=== PATIENT | male | born 1945 | race Caucasian/White ===

== ENCOUNTER → 2016-07-06 | Outpatient (CLI) | payer MEDICARE, OTHER | END | disposition home or self-care (01) | LOC: GMAL 10:46 | PROVIDERS: ATTEND Family Medicine | DX: D51.3 Other dietary vitamin B12 deficiency anemia (principal); E55.9 Vitamin D deficiency, unspecified ==

== ENCOUNTER → 2017-01-11 | Outpatient (CLI) | payer MEDICARE, OTHER | END | disposition home or self-care (01) | LOC: GMAL 10:40 | PROVIDERS: ATTEND Family Medicine | DX: Z12.5 Encounter for screening for malignant neoplasm of prostate (principal); E55.9 Vitamin D deficiency, unspecified | CPT/HCPCS: 82306; G0103 ==

== ENCOUNTER → 2017-05-10 | Outpatient (CLI) | payer MEDICARE, OTHER | END | disposition home or self-care (01) | LOC: LAB.O 17:01 | PROVIDERS: ATTEND Family Medicine | DX: M25.562 Pain in left knee (principal) ==

== ENCOUNTER → 2017-06-05 | Outpatient (CLI) | payer MEDICARE, OTHER | LOC: GMAL 10:36 | PROVIDERS: ATTEND Family Medicine | DX: R97.20 Elevated prostate specific antigen [PSA] (principal) ==

== ENCOUNTER → 2017-08-03 | Outpatient (CLI) | payer MEDICARE, OTHER ==
--- NOTE | 2017-08-04 09:32 | RAD ---
EXAM DESCRIPTION: Pelvis CLINICAL HISTORY: 72 years Male, PAIN IN LEFT HIP COMPARISON: None. TECHNIQUE: Frontal x-ray view of hips and pelvis FINDINGS: Advanced degenerative arthrosis of the hips is seen bilaterally with bilateral hip joint space narrowing especially medially. No fracture of the proximal femurs. No hip dislocation. Degenerative changes are seen at the SI joints and lower L-spine. IMPRESSION: Degenerative osteoarthrosis of the bilateral hips. Electronically signed by: Irvin Guillory MD 08/04/2017 9:30 AM CDT
--- NOTE | 2017-08-04 09:35 | RAD ---
EXAM DESCRIPTION: Knee,Left Complete CLINICAL HISTORY: 72 years, Male, KNEE PAIN COMPARISON: None TECHNIQUE: 4 views of the left knee FINDINGS: No fracture or dislocation. Bones appear mildly osteopenic. Markedly narrowed medial compartment on frontal view with sclerosis and eburnation. Prominent medial and lateral joint line spurring is noted. There is meniscal calcification of the lateral compartment. Lateral view shows normal position of the patella. Posterior patellar spurring is seen with very prominent anterior patellar enthesopathy inferiorly. Prominent enthesopathic changes at the anterior tibial eminence. Spurring is prominent in the posterior femoral condylar regions and along the posterior margin of the tibia. There may be a small suprapatellar knee joint effusion. Normal contour of quadriceps and patellar tendons. No abnormal patellar tilt or subluxation on patellar sunrise view. Degenerative spurring of the anterior femoral trochlea and lateral patella is seen. Patellar enthesopathy is noted. IMPRESSION: Advanced degenerative osteoarthrosis of the left knee. Electronically signed by: Irvin Guillory MD 08/04/2017 9:34 AM CDT
== END ==
LOC: RAD 09:31
PROVIDERS: ATTEND Orthopaedic Surgery
DX: M25.562 Pain in left knee (principal); M25.552 Pain in left hip

== ENCOUNTER → 2017-08-14 | Outpatient (CLI) | payer MEDICARE, OTHER | END | disposition home or self-care (01) | LOC: GMAL 11:51 | PROVIDERS: ATTEND Family Medicine | DX: R30.0 Dysuria (principal) ==

== ENCOUNTER → 2017-08-17 | Outpatient (CLI) | payer MEDICARE, OTHER | LOC: LAB.O 08:18 | PROVIDERS: ATTEND Orthopaedic Surgery | DX: Z01.818 Encounter for other preprocedural examination (principal) ==

== ENCOUNTER 2017-08-28 07:00 | Inpatient (IN) | payer MEDICARE, OTHER ==
--- NOTE | 2017-08-27 11:57 | HP ---
CHIEF COMPLAINT: Left knee pain. HISTORY OF PRESENT ILLNESS: Mr. Diaz is a 72-year-old male with a history of severe bilateral knee pain. Mr. Diaz has undergone right total knee replacement. He did well from that and has been having left knee pain for years. It has gotten progressively worse and at this point, he has failed conservative measures. Because of failure of conservative measures and ongoing knee pain, he has requested operative intervention. After discussing the risks , benefits and alternatives to that, the patient has given informed consent. PAST SURGICAL HISTORY: 1. Total knee arthroplasty. MEDICATIONS: 1. Valsartan. 2. Hydrochlorothiazide. 3. Terazosin. 4. Loratadine. 5. Omeprazole. 6. Multiple vitamins. ALLERGIES: MORPHINE. CODE STATUS: DNR. IMMUNIZATIONS: Up to date. SOCIAL HISTORY: The patient does not drink, smoke or use any illicit drugs. FAMILY HISTORY: None pertinent to today's complaint. REVIEW OF SYSTEMS: Negative except as indicated in the History of Present Illness. PHYSICAL EXAMINATION: VITAL SIGNS: Blood pressure 134/75. Pulse 62. Height 6'2". Weight 257 pounds. MENTAL STATUS: The patient is awake, alert, and is able to give a good history and participate in the physical. The patient is oriented to person, place and time. SKIN: Normal tone and turgor. HEENT: Normocephalic, atraumatic. Pupils equal, round and reactive. Mucosal membranes are moist. NECK: Normal range of motion. No thyromegaly, no lymphadenopathy. CHEST: Normal respiratory excursion. CARDIAC: Regular rate and rhythm. No murmurs, rubs or gallops. MUSCULOSKELETAL: The bilateral upper extremities show full active range of motion without significant pain. Sensation is intact in the upper extremities and they are warm and well perfused. He has no crepitus and no deformity. The right lower extremity shows full range of motion of the hip. He has good range of motion in the knee with well-healed wound anteriorly. Sensation is intact. He has no instability. The left lower extremity shows full range of motion of the hip. Sensation is intact. It is warm and well perfused. He has no varus/valgus or anterior/ posterior laxity. He does have crepitus. He does have a moderate effusion. IMAGING: X-rays show advanced arthritis. ASSESSMENT: 1. Osteoarthritis. PLAN: The plan at this point is total knee arthroplasty. He has failed conservative measures. We have discussed the risks, benefits, and alternatives to that and the patient has given informed consent. #[id number] [facility]
[~2017-08-28 07:00] MED LIST: BUPIVACAINE 0.25% W/EPI 50 ML VIAL INJ ONE; DEXAMETHASONE INJ 10 MG/ML VIAL ONE; LACTATED RINGERS 1,000 ML ONE; LIDOCAINE 2 % GEL 5 ML TUBE TOP ONE; METOCLOPRAMIDE HCL INJ 10 MG/2 ML VIAL ONE; MIDAZOLAM INJ 2 MG/2 ML VIAL ONE; MORPHINE SULFATE *EPIDURAL* 0.5 MG/ML VIAL ONE; ONDANSETRON INJ 4 MG/2 ML VIAL ONE; PROPOFOL 200 MG/20 ML VIAL IV ONE; SODIUM CHL 0.9% 100ML MINI-BAG 100 ML IVPB ONE; SODIUM CHLORIDE 0.9% 100ML 100 ML IVPB ONE; SODIUM CHLORIDE 0.9% 250ML 250 ML ONE; TRANEXAMIC ACID 1,000 MG/10 ML VIAL ONE; VANCOMYCIN HCL INJ 1,000 MG VIAL IVPB ONE; ceFAZolin SODIUM 1 GM VIAL ONE; fentaNYL CITRATE INJ 50 MCG/ML AMP ONE
[2017-08-28] MEDS ORDERED: ONDANSETRON INJ 4 MG/2 ML VIAL IV PRN (07:12)
[2017-08-28] MEDS ORDERED: TEMAZEPAM 15 MG CAP PO PRN (07:12)
[2017-08-28] MEDS ORDERED: ALUMINUM & MAGNESIUM HYDROXIDE 30 ML UD PO PRN (07:12)
[2017-08-28] MEDS ORDERED: BISACODYL SUPPOSITORY 10 MG PR PRN (07:12)
[2017-08-28] MEDS ORDERED: PROMETHAZINE HCL INJ 25 MG in SODIUM CHLORIDE 0.9% 50ML 50 ML IVPB PRN (07:12)
[2017-08-28] MEDS ORDERED: CYCLOBENZAPRINE HCL 10 MG TAB PO PRN (07:12)
[2017-08-28] MEDS ORDERED: ZOLPIDEM TARTRATE 5 MG TAB PO PRN (07:12)
[2017-08-28] MEDS ORDERED: HYDROcodone 5MG/APAP 325MG 1 EA TAB PO PRN (07:12)
[2017-08-28] MEDS ORDERED: NALOXONE HCL INJ 0.4 MG/ML VIAL IV PRN (07:12)
[2017-08-28] MEDS ORDERED: PROMETHAZINE HCL INJ 12.5 MG in SODIUM CHLORIDE 0.9% 50ML 50 ML IVPB PRN (07:12)
[2017-08-28] MEDS ORDERED: BENZOCAINE-MENTH LOZ (CEPACOL) 1 EA LOZ MT PRN (07:12)
[2017-08-28] MEDS ORDERED: MAGNESIUM HYDROXIDE 30 ML UD PO PRN (07:12)
[2017-08-28] MEDS ORDERED: TRANEXAMIC ACID INJ 1,000 MG in SODIUM CHLORIDE 0.9% 100ML 100 ML IVPB ONE (07:12)
[2017-08-28] MEDS ORDERED: HYDROmorphone PCA 0.2 MG/ML 1 BAG BAG IVPB SCH (07:30)
[2017-08-28] MEDS: VANCOMYCIN HCL INJ 1,000 MG VIAL IVPB ONE ×2 (07:45→09:03)
[2017-08-28] MEDS: ceFAZolin SODIUM 1 GM VIAL ONE ×2 (07:45→09:03)
[2017-08-28] MEDS: DEX 5% W/NACL 0.45% 1000ML 1,000 ML IVS PRN (12:53)
--- NOTE | 2017-08-28 15:24 | CONS ---
SUPERVISING PHYSICIAN: Chris De La Cruz MD HISTORY OF PRESENT ILLNESS: This is a 72-year-old male patient with a history of severe bilateral knee pain for which the first surgery he underwent was a right total knee arthroplasty. Due to failure of conservative measures, he did have left total knee arthroplasty today. There were no intraoperative complications. He came to the Medical/Surgical Floor postoperatively awake and alert. He states the pain is there and he knows it is there, but it is currently controlled with the [employer] pump. PAST MEDICAL HISTORY: 1. Hypertension. 2. Chronic dyspepsia. 3. Bilateral knee osteoarthritis. 4. Hemorrhoids. 5. Diastolic dysfunction, ejection fraction 60%. PAST SURGICAL HISTORY: 1. Appendectomy. 2. Cholecystectomy. 3. Exploratory laparotomy for small bowel obstruction several years ago. 4. Right total knee arthroplasty from which he apparently had a postoperative ileus after that. CURRENT MEDICATIONS: 1. Diovan 150/12.5 1 tab p.o. b.i.d. 2. Terazosin 2 mg 1 tab p.o. at bedtime. 3. Hydrochlorothiazide 12.5 mg p.o. q.a.m. 4. Saw Corbin 450 mg 2 tabs daily. 5. Tumeric 2 tabs p.o. daily. 6. Omeprazole 20 mg p.o. daily. 7. Claritin 10 mg p.o. daily. ALLERGIES: ACETAMINOPHEN, CODEINE, MORPHINE. FAMILY HISTORY: His father at 76 of a brain aneurysm. His mother has coronary artery disease, hypertension and lung cancer and lives in a jail. SOCIAL HISTORY: The patient quit smoking back in the 1970s. No current alcohol abuse. No illicit drugs. REVIEW OF SYSTEMS: Other than his knee pain, 12 system review is negative. PHYSICAL EXAMINATION: VITAL SIGNS: Blood pressure 114/58. Heart rate 62. Respiratory rate 16. Temperature 98.0. Oxygen saturation 99%. GENERAL: Mr. Diaz is a 72-year-old male patient in no active distress currently. HEENT: Normocephalic, atraumatic. Pupils are equal and reactive. No nasal drainage. Throat with moist mucosa. NECK: Supple. Midline trachea. No jugular venous distention. CHEST: Symmetrical with equal rise and fall of the chest with inspiration and expiration. Lung sounds are clear to auscultation bilaterally. CARDIOVASCULAR: Regular rate and rhythm. Normal S1, S2. ABDOMEN: Soft. Positive bowel sounds. EXTREMITIES: Lower extremities with no edema, but he does have Anthony bandage in place around the left knee with splinting in place. Peripheral pulses are adequate. NEUROLOGIC: The patient is alert, a little bit drowsy from anesthesia, but able to answer questions appropriately. ASSESSMENT: 1. Left knee osteoarthritis status post left total knee arthroplasty. 2. History of hypertension which is currently controlled. 3. History of postoperative ileus in the past from his previous right total knee arthroplasty. PLAN: At this point, we will utilize postoperative orders by Dr. Barrientos. This will include physical therapy and pain control. We will advance diet as tolerated. We will resume his home medications as well. Postoperative labs are ordered for tomorrow to include followup hemoglobin and hematocrit. He has currently got DVT prophylaxis ordered with 30 mg of Lovenox twice daily. We will resume his home medications at this point. #[id number] [facility]
[2017-08-28] MEDS ORDERED: SODIUM CHLORIDE 0.9% 250ML 250 ML ONE ×2 (15:46→19:48)
[2017-08-28] MEDS ORDERED: ceFAZolin SODIUM 2 GRAMS PREMI 50 ML IVPB ONE ×2 (15:47→19:45)
[2017-08-28] MEDS ORDERED: VANCOMYCIN HCL INJ 1,000 MG VIAL IVPB ONE ×2 (15:47→19:48)
[2017-08-28] MEDS: ceFAZolin SODIUM 2 GRAMS PREMI 2 GM in PREMIX BAG 1 BAG IVPB SCH (16:10)
[2017-08-28] MEDS: VANCOMYCIN HCL INJ 1,000 MG in SODIUM CHLORIDE 0.9% 250ML 250 ML IVPB SCH (18:40)
[2017-08-28] MEDS ORDERED: ENOXAPARIN SODIUM 30 MG/0.3 ML SYG SUBCU ONE (19:46)
[2017-08-28] MEDS ORDERED: OMEPRAZOLE CAP 20 MG CAP ONE (19:48)
[2017-08-28] MEDS: IV SET AND CAP CHANGE INJ INJ SCH (20:45)
[2017-08-28] MEDS: SODIUM CHLORIDE 0.9% (FLUSH) 10 ML SYG IV PRN (20:47)
[2017-08-28] MEDS: CHOLECALCIFEROL 2,000 IU TAB PO SCH (20:47)
[2017-08-28] MEDS: TERAZOSIN 1 MG CAP PO SCH (20:47)
[2017-08-28] MEDS: VALSARTAN 80 MG TAB PO SCH (20:47)
[2017-08-28] MEDS: DOCUSATE CALCIUM 240 MG CAP PO SCH (20:47)
[2017-08-28] MEDS ORDERED: hydroCHLOROthiazide 12.5 MG CAP PO SCH (21:00)
[2017-08-28] MEDS ORDERED: CHOLECALCIFEROL 25 MG PO SCH (21:00)
[2017-08-28] MEDS ORDERED: NON-FORMULARY MEDICATION 1 EA MIS (Valsartan-Hydrochlorothiazide [Valsartan/Hydrochlorothi PO SCH (21:00)
[2017-08-28] MEDS: ENOXAPARIN SODIUM 30 MG/0.3 ML SYG SUBCU SCH (21:57)
[2017-08-29] MEDS: ceFAZolin SODIUM 2 GRAMS PREMI 2 GM in PREMIX BAG 1 BAG IVPB SCH ×2 (00:07→08:04)
[2017-08-29] MEDS: traMADol HCL 50 MG TAB PO PRN (04:41)
[2017-08-29] MEDS: VANCOMYCIN HCL INJ 1,000 MG in SODIUM CHLORIDE 0.9% 250ML 250 ML IVPB SCH (06:05)
[2017-08-29] MEDS: OMEPRAZOLE CAP 20 MG CAP PO SCH (06:06)
[2017-08-29] MEDS ORDERED: ceFAZolin SODIUM 2 GRAMS PREMI 50 ML IVPB ONE (07:04)
[2017-08-29] MEDS: CELECOXIB 100 MG CAP PO SCH (07:34)
[2017-08-29] MEDS: VALSARTAN 80 MG TAB PO SCH ×2 (08:03→20:49)
[2017-08-29] MEDS: CHOLECALCIFEROL 2,000 IU TAB PO SCH ×2 (08:03→20:49)
[2017-08-29] MEDS: LORATADINE 10 MG TAB PO SCH (08:03)
[2017-08-29] MEDS: MAGNESIUM OXIDE 400 MG TAB PO SCH (08:03)
[2017-08-29] MEDS: hydroCHLOROthiazide 25 MG TAB PO SCH (08:03)
--- NOTE | 2017-08-29 08:22 | OP ---
DATE OF PROCEDURE: 08/28/17 PREOPERATIVE DIAGNOSIS: 1. Left knee osteoarthritis. POSTOPERATIVE DIAGNOSIS: 1. Left knee osteoarthritis. PROCEDURE: 1. Left total knee arthroplasty. SURGEON: Aamir Barrientos MD. SPECIALTY MOLDER: Rashard Dior CST, SA-C. ANESTHESIA: General. COMPLICATIONS: None. FINDINGS: Severe arthritis of the knee. INDICATION: Mr. Diaz has a long history of pain in the knee. The pain has been treated conservatively, however, he has failed to get relief. Because of the ongoing pain and failure of conservative measures, he has requested operative intervention. After discussing the risks, benefits and alternatives to that, the patient has given informed consent for total knee arthroplasty. PROCEDURE: The patient was brought to the Operating Room and placed in supine position. General anesthesia was induced and the patient's leg was sterilely prepped and draped. Following prepping and draping, the distal femur was exposed and using an intramedullary guide, the distal femoral cut was made. The appropriate sized cutting block was measured, pinned into place, and the anterior, posterior, and chamfer cuts were made. The ACL was transected and the tibia was subluxed. Both the medial and lateral menisci were removed. An intramedullary guide was used to make the proximal tibial cut. The appropriate sized base plate was placed and a trial polyethylene was placed. The trial femur was placed, the knee was reduced, and the knee was taken through a range of motion. The knee was stable in anterior, posterior, varus and valgus stress. The patella tracked anatomically without evidence of subluxation or dislocation. After trialing, the trial components were removed and the bony surfaces were thoroughly irrigated with saline. Following irrigation, the surfaces were dried and the final components were cemented into place. The excess cement was removed and the remaining cement was allowed to cure. The knee was again taken through a range of motion to confirm stability. The wound was then irrigated with saline and closure was performed using PDS to approximate the arthrotomy followed by closure of the subcutaneous tissues with a combination of running and interrupted Monocryl sutures. Sterile dressing was placed. The patient was awoken from anesthesia and taken to Recovery. POSTOPERATIVE INSTRUCTIONS: The patient will be weight-bearing as tolerated on postoperative day 1. COMPONENTS: [employer] Triathlon knee, size 8 femur, size 7 tibia, 9 mm insert. #[id number] [facility]
[2017-08-29] MEDS ORDERED: LORATADINE PO SCH (09:00)
[2017-08-29] MEDS ORDERED: hydroCHLOROthiazide 12.5 MG CAP PO SCH (09:00)
[2017-08-29] MEDS: HYDROcodone/IBUPROFEN 7.5/200 1 EA TAB PO PRN ×2 (09:22→20:50)
[2017-08-29] MEDS: ENOXAPARIN SODIUM 30 MG/0.3 ML SYG SUBCU SCH ×2 (09:32→21:49)
--- NOTE | 2017-08-29 10:39 | PN ---
DATE: 08/29/17 SUBJECTIVE: Mr. Diaz is doing well today. He is having mild pain right now. Other than that, he has no complaints. OBJECTIVE: Afebrile. Vital signs stable. Dressing is clean, dry and intact. ASSESSMENT: Status post total knee arthroplasty. PLAN: The plan at this point is for continued weight-bearing as tolerated. [facility][id number] [facility]
--- NOTE | 2017-08-29 10:40 | PN ---
DATE: 08/28/17 POSTOPERATIVE CHECK SUBJECTIVE: Mr. Diaz is not having any pain. The spinal appears to be working well. OBJECTIVE: Afebrile. Vital signs stable. Dressing is clean, dry and intact. ASSESSMENT: Status post total knee arthroplasty. PLAN: The plan at this point is to begin weight-bearing as tolerated and also CPM with progression as tolerated. #[id number] [facility]
[2017-08-29] MEDS: DEX 5% W/NACL 0.45% 1000ML 1,000 ML IVS PRN (15:07)
[2017-08-29] MEDS: DOCUSATE CALCIUM 240 MG CAP PO SCH (20:49)
[2017-08-29] MEDS: TERAZOSIN 1 MG CAP PO SCH (20:49)
[2017-08-29] MEDS: SODIUM CHLORIDE 0.9% (FLUSH) 10 ML SYG IV PRN (20:50)
--- NOTE | 2017-08-30 00:22 | PN ---
DATE: 08/29/17 SUPERVISING PHYSICIAN: Chris De La Cruz M.D. SUBJECTIVE: The patient is sitting up in his hospital bed. He has no complaints of nausea, vomiting, diarrhea, constipation, chest pain or shortness of breath. He had a little more difficulty today as yesterday postoperatively he did very well. He said the pain was a little more intense today but it is not anything he did not expect. The patient has not voided since the Stanley catheter was discontinued. He did say that he frequently has trouble with postoperative urinary retention and in the past he has had to be straight cathed several times until he was able to empty his bladder. OBJECTIVE: VITAL SIGNS: He is afebrile, heart rate 84, blood pressure 125/80, respiratory rate 18, O2 sat 96% on room air. RESPIRATORY: Essentially clear to auscultation bilaterally. CARDIAC: Regular rate and rhythm. EXTREMITIES: Bilateral pedal pulses are palpable at +2. Dressing to his left knee is dry and intact. There is minimal swelling to the left knee. NEUROLOGIC: He is awake, alert and oriented times three. LABORATORY: Hemoglobin 12.1, hematocrit 35.7. All other labs and films have been reviewed via the EMR. ASSESSMENT: 1. Osteoarthritis of the left knee status post left total knee arthroplasty performed by Dr. Aamir Barrientos, orthopedic surgeon, postoperative day #1. 2. History of postoperative urinary retention frequently requiring postoperative catheterization. 3. History of hypertension. 4. History of postoperative ileus in the past after his right total knee arthroplasty. PLAN: We will continue present supportive care. Orthopedic issues will be per Dr. Aamir Barrientos, orthopedic surgeon. Will continue with his physical therapy for strengthening and conditioning. Continue to encourage good pulmonary hygiene. The patient has not voided, so we will do a straight cath on him and if needed we can do bladder training this evening or in the morning. Will continue to watch that closely. If the patient has any abdominal pain, it may be beneficial to get an abdominal x-ray, but will encourage for him to continue to walk in the hallways as tolerated. Otherwise we will continue to follow the patient closely and follow as needed. Dr. De La Cruz is the collaborating physician available for consultation. #[id number] [facility]
[2017-08-30] MEDS: HYDROcodone/IBUPROFEN 7.5/200 1 EA TAB PO PRN ×4 (01:27→21:26)
[2017-08-30] MEDS: OMEPRAZOLE CAP 20 MG CAP PO SCH (06:29)
[2017-08-30] MEDS: CELECOXIB 100 MG CAP PO SCH (07:37)
[2017-08-30] MEDS: CHOLECALCIFEROL 2,000 IU TAB PO SCH ×2 (08:23→21:25)
[2017-08-30] MEDS: VALSARTAN 80 MG TAB PO SCH ×2 (08:23→21:25)
[2017-08-30] MEDS: hydroCHLOROthiazide 25 MG TAB PO SCH (08:23)
[2017-08-30] MEDS: MAGNESIUM OXIDE 400 MG TAB PO SCH (08:23)
[2017-08-30] MEDS: LORATADINE 10 MG TAB PO SCH (08:23)
[2017-08-30] MEDS: SODIUM CHLORIDE 0.9% (FLUSH) 10 ML SYG IV SCH ×2 (08:24→21:25)
[2017-08-30] MEDS: ENOXAPARIN SODIUM 30 MG/0.3 ML SYG SUBCU SCH ×2 (09:40→21:41)
--- NOTE | 2017-08-30 13:44 | PN ---
DATE: 08/30/17 SUBJECTIVE: Mr. Diaz seems to be doing well and he has been ambulating. OBJECTIVE: Afebrile. Vital signs stable. Wound is clean. There are no signs or symptoms of infection. ASSESSMENT: Status post total knee arthroplasty. PLAN: The plan at this point is for him to continue with weight-bearing as tolerated as well as increasing CPM and encouraging active range of motion. #[id number] [facility]
[2017-08-30] MEDS: traMADol HCL 50 MG TAB PO PRN (16:48)
--- NOTE | 2017-08-30 19:46 | PN ---
DATE: 08/30/17 SUPERVISING PHYSICIAN: Chris De La Cruz M.D. SUBJECTIVE: The patient is sitting up in his chair in his hospital room. His Iceman is in place on his left knee. He had more pain today than he has had in the previous couple of days, but it was not unexpected. Otherwise he has no complaints of chest pain, nausea, vomiting, diarrhea or constipation. OBJECTIVE: VITAL SIGNS: He is afebrile, heart rate 74, blood pressure 144/85, respiratory rate 18, O2 sat is 93% on room air. RESPIRATORY: Essentially clear to auscultation bilaterally. CARDIAC: Regular rate and rhythm. EXTREMITIES: His bilateral pedal pulses are strong at +2. The dressing to his left knee is dry and intact. NEUROLOGIC: He is awake, alert and oriented times three. There are no labs and films to report at this time. ASSESSMENT: 1. Osteoarthritis of the left knee status post left total knee arthroplasty performed by Dr. Aamir Barrientos, orthopedic surgeon, postoperative day #2. 2. History of postoperative urinary retention frequently requiring postoperative catheterization. 3. History of hypertension. 4. History of postoperative ileus in the past after his right total knee arthroplasty. PLAN: We will continue present supportive care. Orthopedic issues will be per Dr. Aamir Barrientos, orthopedic surgeon. Strengthening and conditioning will continue with Physical Therapy. Yesterday just prior to catheterization, the patient was able to void and has had no problems today. Due to his past history of ileus, will need to watch that closely. So far he has had no issues with bowel movements or abdominal pain. Continue to encourage good pulmonary hygiene. Will continue to monitor him closely and follow as needed. Dr. De La Cruz is the collaborating physician available for consultation. #[id number] [facility]
[2017-08-30] MEDS: TERAZOSIN 1 MG CAP PO SCH (21:25)
[2017-08-30] MEDS: DOCUSATE CALCIUM 240 MG CAP PO SCH (21:25)
[2017-08-31] MEDS: OMEPRAZOLE CAP 20 MG CAP PO SCH (06:19)
[2017-08-31 06:51] VITALS: O2SAT 95
[2017-08-31] MEDS: CELECOXIB 100 MG CAP PO SCH (07:48)
[2017-08-31] MEDS: IV SET AND CAP CHANGE INJ INJ SCH (07:49)
[2017-08-31] MEDS: VALSARTAN 80 MG TAB PO SCH (09:03)
[2017-08-31] MEDS: hydroCHLOROthiazide 25 MG TAB PO SCH (09:04)
[2017-08-31] MEDS: CHOLECALCIFEROL 2,000 IU TAB PO SCH (09:04)
[2017-08-31] MEDS: SODIUM CHLORIDE 0.9% (FLUSH) 10 ML SYG IV SCH (09:04)
[2017-08-31] MEDS: MAGNESIUM OXIDE 400 MG TAB PO SCH (09:04)
[2017-08-31] MEDS: LORATADINE 10 MG TAB PO SCH (09:04)
[2017-08-31] MEDS: ENOXAPARIN SODIUM 30 MG/0.3 ML SYG SUBCU SCH (10:03)
[2017-08-31 10:59] VITALS: TEMP 97.6
[2017-08-31 14:50] VITALS: BP 116/64
[2017-08-31] MEDS: HYDROcodone/IBUPROFEN 7.5/200 1 EA TAB PO PRN (15:32)
[2017-08-31] MEDS ORDERED: MAGNESIUM HYDROXIDE 30 ML UD PO ONE (21:00)
[2017-08-31] MEDS ORDERED: BISACODYL SUPPOSITORY 10 MG PR ONE (21:00)
--- NOTE | 2017-09-01 14:00 | DS ---
SUPERVISING PHYSICIAN: Chris De La Cruz M.D. DISCHARGE DIAGNOSIS: 1. Osteoarthritis of the left knee status post left total knee arthroplasty performed by Dr. Aamir Barrientos, orthopedic surgeon, postoperative day #3. 2. History of postoperative urinary retention frequently requiring postoperative catheterization. 3. History of hypertension. 4. History of postoperative ileus in the past after his right total knee arthroplasty. HISTORY OF PRESENT ILLNESS: This is a 72 year-old male patient who was admitted on 08/28/17 for a left TKA. He has a history of bilateral knee pain. He has previously had a right total knee arthroplasty and on date of admission he was admitted for his operative procedure on his left knee. He failed conservative measures as an outpatient and he elected to have his TKA per Dr. Aamir Barrientos, orthopedic surgeon. HOSPITAL COURSE: I saw him postoperatively. He advanced through his postoperative phase without any problems other than he had difficulty voiding once his catheter was discontinued. He did not require re-catheterization as he eventually voided without difficulty approximately 8 hours after discontinuance of the Stanley catheter. He had normal bowel movements and there were no issues with postoperative ileus. He continued his physical therapy for strengthening and conditioning. He has net his physical therapy goals and he will be discharged home today. DISCHARGE PLAN: The patient will be discharged home in stable condition. He is to continue his physical therapy at [facility]. He has a postoperative followup with Dr. Barrientos and he will need to make an appointment with Dr. Scruggs in the next several weeks. He was unable to get his Vicoprofen filled so I am sending him home on Tramadol overnight until Dr. Barrientos can fill his prescription for Vicoprofen as he is allergic to Acetaminophen. He is to return to the hospital or call Dr. Barrientos's office for any further problems or complications. DISCHARGE MEDICATIONS: 1. Terazosin. 2. Valsartan/Hydrochlorothiazide. 3. Omeprazole. 4. Tumeric. 5. Vitamin D. 6. Saw palmetto. 7. Claritin. 8. Celebrex. 9. Cyclobenzaprine. 10. Surfak. 11. Hydrocodone/Ibuprofen. 12. Xarelto for 9 additional days[address] 13[address] De La Cruz is the collaborating physician available for consultation. #[id number] [facility]
== END 2017-08-31 15:57 | disposition home or self-care (01) | DRG 470 ==
LOC: AMB 07:00 → MS 11:04
PROVIDERS: ADMIT Orthopaedic Surgery; ATTEND Nurse Practitioner Acute Care
PROC: 0SRD0J9 Replacement of Left Knee Joint with Synthetic Substitute, Cemented, Open Approach (ICD-10-PCS; principal; 2017-08-28 07:06)
DX: M17.12 Unilateral primary osteoarthritis, left knee (principal); R33.8 Other retention of urine; I10 Essential (primary) hypertension; Z96.651 Presence of right artificial knee joint

== ENCOUNTER → 2017-10-16 | Outpatient (CLI) | payer MEDICARE, OTHER | LOC: GMAL 10:50 | PROVIDERS: ATTEND Family Medicine | DX: R31.21 Asymptomatic microscopic hematuria (principal) ==

== ENCOUNTER → 2017-10-18 | Outpatient (CLI) | payer MEDICARE, OTHER ==
--- NOTE | 2017-10-18 11:07 | CT ---
EXAM DESCRIPTION: Abdomen/Pelvis w/wo Contrast: Computed Tomography. CLINICAL HISTORY: Hematuria COMPARISON: None. TECHNIQUE: Spiral-axial scans at 5.0 mm intervals through the abdomen and pelvis before and after standard dose nonionic IV contrast. No oral contrast. And initial postcontrast scan was repeated due to technical difficulties with the power IV contrast injector. Coronal and sagittal 2.0 mm reconstructions. 5 mm Delayed helical-axial scans, liver through the pubic symphysis. No adverse reactions. Total Exam DLP 5554.77 mGy - cm. This exam was performed according to our departmental CT dose-optimization program which includes automated exposure control, adjustment of the mA and/or kV according to patient size and/or use of iterative reconstruction technique; to reduce radiation dose to as low as reasonably achievable (ALARA). FINDINGS: Lung bases and pleura: Negative. Coronary artery calcifications. Liver, Stomach, Spleen, Adrenal Glands: Craniocaudal dimension of the right lobe is 16.9 cm. Subcapsular cyst on the lateral segment of the left lobe. No focal lesions or intrahepatic dilation. No ascites. Other solid organs are unremarkable. Pancreas, Gallbladder, Ducts: Surgical clips in the gallbladder fossa with no fluid. Common bile duct and pancreas are negative. Kidneys and Ureters: Multiple bilateral fluid density objects in the renal pelvis and abutting the collecting systems consistent with cysts. These are equal to or greater than 1 cm in diameter. 1.5 cm juxta cortical cyst abutting the lower pole of the left kidney. 1 cm well-defined object juxta cortical left kidney with Hounsfield density +28 to +35 and no contrast enhancement or calcification. No hydronephrosis or perinephric edema bilaterally. No radiodense stones bilaterally. Normal caliber and density and enhancement of the bilateral ureters. Mesentery: No free air or ascites. No fatty stranding or fascial thickening. Aorta: Minimal atherosclerotic changes and ectasia. Small Bowel: Minimal gas and fluid. Terminal Ileum/Cecum: Normal caliber. Appendix not seen. Normal density of the surrounding fat. Colon: Fecal matter mostly entire length with no distention or significant air-fluid levels. Pelvic Organs: No radiodense stones in the urinary bladder. Prostate gland abutting the base and the seminal vesicles. Prostate gland dimensions 5.5 x 4.0 x 3.6 cm. No fluid in the anterior peritoneal reflection and no enlarged lymph nodes. Spine and Bony Pelvis: Spondylosis L5-S1 bulging disc L4-5 significant foraminal narrowing. Spondylosis lower thoracic disc spaces. Abdominal Wall/Back Soft Tissues: Small fatty left inguinal hernia not containing bowel. IMPRESSION: 1. No radiodense stones in the kidneys ureters or urinary bladder. Multiple parapelvic cysts and cysts abutting the collecting systems bilaterally. No hydronephrosis or perinephric fluid. Simple juxta cortical cyst on the right kidney. Dense juxta cortical cyst on the left kidney, most likely proteinaceous fluid with no wall thickening, no enhancement, and no calcification. 2. Enlarged prostate gland abutting the urinary bladder and seminal vesicles. No enlarged pelvic lymph nodes and no fluid in the anterior peritoneal reflection. 3. Borderline hepatomegaly right lobe of the liver with a subcapsular left lobe cyst. No ascites. 4. Diffuse colonic constipation with no complications. No small bowel obstruction. 5. Thoracic and lumbar spondylosis. Small fatty left inguinal hernia not containing bowel. Electronically signed by: Rashard Paul MD 10/18/2017 11:06 AM CDT
== END ==
LOC: CT 08:00
PROVIDERS: ATTEND Family Medicine
DX: R31.21 Asymptomatic microscopic hematuria (principal); N28.89 Other specified disorders of kidney and ureter; K59.00 Constipation, unspecified

== ENCOUNTER → 2017-11-14 | Outpatient (CLI) | payer MEDICARE, OTHER ==
--- NOTE | 2017-11-14 11:39 | US ---
EXAM DESCRIPTION: Renal sonogram CLINICAL HISTORY: 72 years Male, HEMATURIA; RENAL CYST COMPARISON: Previous CT abdomen and pelvis without and with contrast October 19, 2007 TECHNIQUE: Retroperitoneal sonogram was performed to evaluate the kidneys and bladder. FINDINGS: Right kidney Right renal length is 11.4 cm. Renal cortical thickness and echogenicity are normal. No right renal mass or shadowing stone. Lucencies in the pelvis are consistent with parapelvic cysts. A lower pole cortical cyst measures 2 cm. This was seen on previous CT exam. No hydronephrosis. Normal appearance of aorta and inferior vena cava. Left kidney Left renal length is 11.6 cm. Renal cortical thickness and echogenicity are normal. No left renal mass or shadowing stone. Lucency in the left renal hilum is consistent with prominent parapelvic cysts. The appearance is similar to hydronephrosis but the previous CT clarifies the issue showing prominent parapelvic cysts with normal caliber of the collecting system. Cyst at the superior left kidney measures 1.1 cm. Another hypoechoic lesion along the lateral aspect of the left kidney measures 1.2 cm with low-level internal echoes which could be artifacts or internal hemorrhage. There is positive through transmission consistent with cystic nature. This could be followed with a repeat sonogram in 6-12 months. Urinary bladder is partly filled. Bladder volume was measured at 14.4 mL. No bladder mass or abnormal wall thickening considering the degree of distention. IMPRESSION: Bilateral parapelvic renal cysts. Cortical cysts in both kidneys appear benign. See above. Unremarkable urinary bladder. Electronically signed by: Irvin Guillory MD 11/14/2017 11:38 AM CDT
== END ==
LOC: US 08:30
PROVIDERS: ATTEND Urology
DX: N28.1 Cyst of kidney, acquired (principal)

== ENCOUNTER → 2018-01-08 | Outpatient (CLI) | payer MEDICARE, OTHER | LOC: GMAL 10:52 | PROVIDERS: ATTEND Family Medicine | DX: D51.3 Other dietary vitamin B12 deficiency anemia (principal); R53.83 Other fatigue; E55.9 Vitamin D deficiency, unspecified ==

== ENCOUNTER → 2018-07-12 | Outpatient (CLI) | payer MEDICARE, OTHER | LOC: GMAL 14:42 | PROVIDERS: ATTEND Family Medicine | DX: D51.3 Other dietary vitamin B12 deficiency anemia (principal); E55.9 Vitamin D deficiency, unspecified; Z12.5 Encounter for screening for malignant neoplasm of prostate | CPT/HCPCS: 82306; 82607; G0103 ==

== ENCOUNTER 2019-04-29 07:00 | Emergency (ER) | payer MEDICARE, OTHER ==
[2019-04-29] MEDS ORDERED: ASPIRIN (CHEWABLE) 81 MG TAB PO ONE (07:16)
[2019-04-29] MEDS ORDERED: SODIUM CHLORIDE 0.9% 100ML 100 ML IVPB ONE (07:24)
[2019-04-29] MEDS ORDERED: diltiaZEM DRIP 125 MG/25 ML VIAL IVPB ONE (07:25)
[2019-04-29] MEDS ORDERED: diltiaZEM DRIP 125 MG in SODIUM CHLORIDE 0.9% 100ML 100 ML IVPB SCH (07:30)
--- NOTE | 2019-04-29 07:34 | ED.PDOC ---
History of Present Illness - General Chief Complaint: Chest Pain/MT Stated Complaint: chest pressure Time Seen by Provider: 04/29/19 07:15 Additional Information: Patient is a 74-year-old male who presents to the ED with chief complaint of generalized weakness beginning this morning. Patient denies chest pain and indicates "I just don't feel well". She has mild shortness of breath. Patient denies nausea, vomiting, fever, diarrhea, abdominal pain. She denies history of atrial fibrillation or coronary artery disease. He indicates that he does see a project program manager in [facility] where he has had an echo done but that he does not have any heart conditions other than a murmur. Patient indicates he has never had these similar symptoms before. Patient is otherwise asymptomatic and has no other complaints. - History of Present Illness Allergies/Adverse Reactions: Allergies Acetaminophen [From Tylenol] Allergy (Verified 08/28/17 11:31) Codeine Allergy (Verified 08/28/17 11:31) Morphine Adverse Reaction (Verified 08/28/17 11:31) Home Medications: Ambulatory Orders Hydrochlorothiazide 12.5 mg PO DAILY 06/28/15 Terazosin HCl 2 mg PO BEDTIME 06/28/15 Loratadine [Claritin] 1 tablet PO DAILY 04/29/19 Omeprazole 20 mg PO DAILY 04/29/19 Telmisartan-Hydrochlorothiazid [Telmisartan/Hydrochloroth 80-25 mg] 0.5 tablet PO BID 04/29/19 Review of Systems - Review of Systems Constitutional: States: weakness. Denies: chills, fever EENTM: States: no symptoms reported Respiratory: States: short of breath. Denies: cough, orthopnea, wheezing Cardiology: Denies: chest pain, edema, palpitations, syncope Gastrointestinal/Abdominal: Denies: abdominal pain, nausea, vomiting Genitourinary: States: no symptoms reported Musculoskeletal: States: no symptoms reported. Denies: back pain Skin: States: no symptoms reported. Denies: rash Neurological: States: no symptoms reported Endocrine: States: no symptoms reported Hematologic/Lymphatic: States: no symptoms reported All other Systems: Reviewed and Negative Past Medical History (General) - Patient Medical History Hx Seizures: No Hx Stroke: No Hx Asthma: No Hx of COPD: No Hx Cardiac Disorders: No Hx Congestive Heart Failure: No Hx Pacemaker: No Hx Hypertension: Yes Hx Diabetes: No Hx Cancer: No Hx MRSA: No Surgical History: appendectomy, cholecystectomy - Vaccination History Hx Influenza Vaccination: Yes Hx Pneumococcal Vaccination: Yes - Social History Hx Tobacco Use: No Hx Alcohol Use: No Hx Substance Use: No Hx Physical Abuse: No Hx Emotional Abuse: No Family Medical History - Family History Father Living Status: Age at (years of age): 74 Cause of : aneurism Mother Living Status: Cause of : [place] Hx Family Cancer: Yes - lung Physical Exam - Physical Exam General Appearance: Comfortable, No apparent distress, Well Developed, Well Nourished Eyes, Ears, Nose, Throat Exam: normal ENT inspection, pharynx normal Neck: non-tender, full range of motion, supple, normal inspection Respiratory: chest non-tender, lungs clear, normal breath sounds, no respiratory distress, no accessory muscle use Cardiovascular/Chest: normal peripheral pulses, no edema, no gallop, no JVD, no murmur, tachycardia, irregularly irregular Peripheral Pulses: radial,right: 2+, radial,left: 2+ Gastrointestinal/Abdominal: normal bowel sounds, non tender, soft, no organomegaly, no pulsatile mass Extremity: normal range of motion, non-tender, normal inspection, no pedal edema 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 04/29/19 08:12 EKG: Atrial fibrillation, rate 133, normal QRS, nonspecific ST changes, normal T waves. Negative STEMI. Read by Ankit De La Cruz M.D. 04/29/19 08:36 Patient's heart rate now is in the 80s after Cardizem bolus and drip, although he is still in atrial fibrillation. Patient indicates he is feeling much better now with the slower rate. Patient's labs are unremarkable including his troponin and BNP, patient's chest x-ray is clear. We'll transfer to [facility] at patient's request for cardiology evaluation of new onset atrial fibrillation. Patient indicates his project program manager is at [facility]. Patient is medically stable for transfer. 04/29/19 08:[address] Paul, ED physician at [facility], who accepts patient ED to ED transfer. - Results/Orders Results/Orders: 04/29/19 07:15 IV:Start .ONCE EKG .ONCE EKG Assessment ONCE 04/29/19 07:30 diltiaZEM DRIP [Cardizem Drip] 125 mg Sodium Chloride 0.9% 100Ml [NS (NACL 0 .9%) 100ml] 100 ml IVPB PRN Laboratory Results WBC 5.4 K/mm3 (4.8-10.8) 04/29/19 07:00 RBC 4.77 M/mm3 (4.70-6.10) 04/29/19 07:00 Hgb 14.1 gm/dL (14.0-18.0) 04/29/19 07:00 Hct 42.5 % (42.0-52.0) 04/29/19 07:00 MCV 89.0 fl (80.0-94.0) 04/29/19 07:00 MCH 29.6 pg (27.0-31.0) 04/29/19 07:00 MCHC 33.3 g/dL (33.0-37.0) 04/29/19 07:00 RDW 13.9 % (11.5-14.5) 04/29/19 07:00 Plt Count 202 K/mm3 (130-400) 04/29/19 07:00 MPV 7.5 fl (7.40-10.4) 04/29/19 07:00 Absolute Neuts (auto) 3.50 K/uL (1.8-6.8) 04/29/19 07:00 Absolute Lymphs (auto) 1.20 K/uL (1.0-3.4) 04/29/19 07:00 Absolute Monos (auto) 0.50 K/uL (0.2-0.8) 04/29/19 07:00 Absolute Eos (auto) 0.10 K/uL (0.0-0.4) 04/29/19 07:00 Absolute Basos (auto) 0.00 K/uL (0.0-0.1) 04/29/19 07:00 Neutrophils % 65.2 % (42.0-78.0) 04/29/19 07:00 Lymphocytes % 23.1 % (20.0-50.0) 04/29/19 07:00 Monocytes % 8.9 % (2.0-9.0) 04/29/19 07:00 Eosinophils % 2.1 % (1.0-5.0) 04/29/19 07:00 Basophils % 0.7 % (0.0-2.0) 04/29/19 07:00 PT 11.7 SECONDS (9.0-10.9) H 04/29/19 07:00 INR 1.17 (0.9-1.15) H 04/29/19 07:00 Sodium 136 mmol/L (135-145) 04/29/19 07:00 Potassium 3.5 mmol/L (3.6-5.0) L 04/29/19 07:00 Chloride 103 mmol/L (101-111) 04/29/19 07:00 Carbon Dioxide 25 mmol/L (21-31) 04/29/19 07:00 Anion Gap 11.5 (12-18) L 04/29/19 07:00 BUN 18 mg/dL (7-18) 04/29/19 07:00 Creatinine 0.98 mg/dL (0.6-1.3) 04/29/19 07:00 BUN/Creatinine Ratio 18.4 (10-20) 04/29/19 07:00 Random Glucose 103 mg/dL (70-105) 04/29/19 07:00 Serum Osmolality 274.1 mOsm/L (275-295) L 04/29/19 07:00 Calcium 8.9 mg/dL (8.4-10.2) 04/29/19 07:00 Total Bilirubin 1.0 mg/dL (0.2-1.0) 04/29/19 07:00 AST 22 IU/L (10-42) 04/29/19 07:00 ALT 19 IU/L (10-60) 04/29/19 07:00 Alkaline Phosphatase 59 IU/L (42-121) 04/29/19 07:00 Troponin I < 0.02 ng/mL (0.01-0.05) 04/29/19 07:00 B-Natriuretic Peptide 52.0 pg/ml (0-100) 04/29/19 07:00 Serum Total Protein 6.5 gm/dL (6.4-8.2) 04/29/19 07:00 Albumin 3.8 g/dl (3.2-5.5) 04/29/19 07:00 Globulin 2.7 gm/dL (2.3-3.5) 04/29/19 07:00 Albumin/Globulin Ratio 1.4 (1.1-1.9) 04/29/19 07:00 Departure - Departure Clinical Impression: Atrial fibrillation with rapid ventricular response Time of Disposition: 08:38 Disposition: Transfer to Hospital Condition: Fair Home Medications: Ambulatory Orders Hydrochlorothiazide 12.5 mg PO DAILY 06/28/15 Terazosin HCl 2 mg PO BEDTIME 06/28/15 Loratadine [Claritin] 1 tablet PO DAILY 04/29/19 Omeprazole 20 mg PO DAILY 04/29/19 Telmisartan-Hydrochlorothiazid [Telmisartan/Hydrochloroth 80-25 mg] 0.5 tablet PO BID 04/29/19 Transfer to Outside Facility - Transfer Information Decision to Transfer Date: 04/29/19 Decision to Transfer Time: 08:39 Reason for Transfer: required specialist not available Accepting Provider:: Dr. Paul Accepting Facility: [facility]
--- NOTE | 2019-04-29 07:44 | RAD ---
XR CHEST 1 VIEW HISTORY: 74 years Male CP COMPARISON: CT abdomen and pelvis dated October 18, 2017; CT chest dated August 12, 2015. TECHNIQUE: Single AP view of the chest. FINDINGS: Lungs: No focal consolidation, pleural effusion, or pneumothorax detected. Heart/Mediastinum: Cardiac silhouette at the upper limits of normal, consistent with prominent epicardial fat pad seen on the prior CT. Mediastinal contours otherwise unremarkable. Bones: No acute abnormality detected. IMPRESSION: No evidence of an acute cardiopulmonary process. Electronically signed by: Stuart Rhoades MD 04/29/2019 7:42 AM TOOL MAKER BENCH
[2019-04-29] MEDS ORDERED: ENOXAPARIN SODIUM 100 MG/ML SYG SUBCU ONE (07:47)
[2019-04-29 09:16] VITALS: BP 138/68; TEMP 96; O2SAT 97
== END 2019-04-29 09:21 | disposition short-term general hospital (02) ==
LOC: ER 07:00
DX: I48.91 Unspecified atrial fibrillation (principal); R00.0 Tachycardia, unspecified; I10 Essential (primary) hypertension; R01.1 Cardiac murmur, unspecified; Z79.899 Other long term (current) drug therapy; Z88.5 Allergy status to narcotic agent; Z88.6 Allergy status to analgesic agent
CPT/HCPCS: 36415; 71045; 80053; 83880; 84484; 85025; 85610; 93005; J1650; J7050

== ENCOUNTER 2019-07-29 18:24 | Emergency (ER) | payer MEDICARE, OTHER ==
[2019-07-29] MEDS ORDERED: SODIUM CHLORIDE 0.9% 1000ML 1,000 ML IVS ONE (18:44)
[2019-07-29] MEDS ORDERED: PANTOPRAZOLE SODIUM IV 40 MG VIAL IV ONE (18:44)
[2019-07-29] MEDS ORDERED: ONDANSETRON INJ 4 MG/2 ML VIAL IV ONE ×2 (18:44→22:34)
--- NOTE | 2019-07-29 18:49 | ED.PDOC ---
History of Present Illness - General Chief Complaint: GI Problem Stated Complaint: n/v, abdominal pain Time Seen by Provider: 07/29/19 18:32 - History of Present Illness Initial Comments: 74 M +pmh presents to ED c/o acute onset of epigastric abdominal pain. Associated nausea with nonbilious coffee ground emesis; denies hematemesis by description. Pt is anticoagulated on Warfarin stating last INR 1 month ago was low and they increased his dose. He denies h/o similar sx's and denies h/o receiving EGD. Currently denies associated SOB, CP, cough, f/c, back pain, and/or acute changes in bowels/urination. Pt is without any other complaints at this time. Review of Systems - Review of Systems Constitutional: Denies: chills, fever EENTM: Denies: nose congestion, throat pain Respiratory: Denies: cough, short of breath Cardiology: Denies: chest pain, edema Gastrointestinal/Abdominal: States: abdominal pain, nausea, vomiting. Denies: constipation, diarrhea Genitourinary: Denies: dysuria, frequency Musculoskeletal: Denies: back pain, muscle pain Skin: Denies: change in color, rash Neurological: Denies: headache, tingling Endocrine: Denies: increased urine, unexplained weight loss Past Medical History (General) - Patient Medical History Hx Seizures: No Hx Stroke: No Hx Asthma: No Hx of COPD: No Hx Cardiac Disorders: Yes - atrial fibriallation Hx Congestive Heart Failure: No Hx Pacemaker: No Hx Hypertension: Yes Hx Diabetes: No Hx Gastroesophageal Reflux: Yes Hx Cancer: No Hx MRSA: No - Vaccination History Hx Influenza Vaccination: Yes Hx Pneumococcal Vaccination: Yes - Social History Hx Tobacco Use: No Hx Alcohol Use: No Hx Substance Use: No Hx Physical Abuse: No Hx Emotional Abuse: No Family Medical History - Family History Father Living Status: Age at (years of age): 74 Cause of : aneurism Mother Living Status: Cause of : [place] Hx Family Cancer: Yes - lung Physical Exam - Physical Exam General Appearance: Alert, Other - mild dehydration, mild distress, non-toxic Eyes, Ears, Nose, Throat Exam: PERRL/EOMI, other - conjunctiva nl, no scleral icterus Neck: full range of motion, supple Respiratory: lungs clear, normal breath sounds, no respiratory distress, no accessory muscle use Cardiovascular/Chest: normal peripheral pulses, regular rate, rhythm, no edema, no gallop, no JVD Gastrointestinal/Abdominal: normal bowel sounds, soft, tenderness, other - epigastric TTP, no rebound, no guarding, no distension, no peritoneal signs, no pulsatile mass, no abdominal bruit Back Exam: no CVA tenderness Extremity: normal inspection Neurologic: alert, normal mood/affect, oriented x 3 Skin Exam: normal color, warm/dry, other - no rash, mild decrease in skin turgor Progress - Progress Progress: [id number] Presents with controlled UGIB from likely gastritis while anticoagulated on warfarin. Low clinical concern for hemorrhagic ruptured esophageal varices. I will perform labs, imaging, provide appropriate pharmacotherapy, and continue to monitor/reassess. Dispo will depend on lab results, imaging results, and overall course in ED. Rechecked pt. NAD, VSS, and is feeling improved after medications. 07/29/19 22:20 Rechecked pt. NAD, VSS, and continues to feel improved with resolved nausea/vomiting. No active emesis throughout entire ED encounter. I have discussed lab results, radiology results, my clinical impression, and diagnosis. I have also discussed plan for discharge home with f/u, education, and prescribed medications. ED return precautions provided. Pt and family member voice understanding, agree with plan, and all questions answered. I have provided a printed sheet with Dr. Jose Deng's information on it as well as his contact info. I have instructed him to call the clinic and setup outpatient f/u. 22:33 Pt has first episode of emesis in ED. I have ordered 8mg Zofran IV and will reassess prior to d/c. 22:58 Pt is feelling much better with resolved nausea. - Results/Orders Results/Orders: Laboratory Tests 07/29/19 07/29/19 07/29/19 18:50 18:50 18:50 WBC 8.2 RBC 4.82 Hgb 14.0 Hct 41.0 L MCV 85.2 MCH 29.0 MCHC 34.1 RDW 13.9 Plt Count 202 MPV 7.4 Absolute Neuts (auto) 6.80 Absolute Lymphs (auto) 0.90 L Absolute Monos (auto) 0.50 Absolute Eos (auto) 0.00 Absolute Basos (auto) 0.00 Neutrophils % 83.4 H Lymphocytes % 10.6 L Monocytes % 5.6 Eosinophils % 0.1 L Basophils % 0.3 PT 18.1 H INR 1.83 H Sodium 136 Potassium 3.5 L Chloride 99 L Carbon Dioxide 26 Anion Gap 14.5 BUN 18 Creatinine 0.92 BUN/Creatinine Ratio 19.6 Random Glucose 103 Serum Osmolality 274.1 L Calcium 8.8 Magnesium 1.8 Total Bilirubin 2.5 H* AST 22 ALT 21 Alkaline Phosphatase 63 Serum Total Protein 7.2 Albumin 4.1 Globulin 3.1 Albumin/Globulin Ratio 1.3 Lipase 28 EXAM DESCRIPTION: Gall Bladder CLINICAL HISTORY: 74 years Male abdominal pain, hyperbilirubinemia COMPARISON: CT scan of the abdomen and pelvis dated October 18, 2017. TECHNIQUE: Real-time sonography of the right upper abdomen was performed. FINDINGS: No visualization of gallbladder consistent with history of prior cholecystectomy. Common bile duct measured 6 mm. No focal hepatic abnormality. No intrahepatic biliary dilatation. Homogeneous echogenicity involving the hepatic parenchyma. Right kidney is normal in size and echogenicity measuring 11.4 x 7.1 x 7 cm. No hydronephrosis seen. No abnormal fluid collections seen. IMPRESSION: Prior cholecystectomy. No sonographic abnormality noted. Electronically signed by: Sherrill Naranjo MD 07/29/2019 9:09 PM CDT Departure - Departure Clinical Impression: Upper GI bleed, Anticoagulated on Coumadin, Hyperbilirubinemia, Epigastric abdominal pain Nausea & vomiting Qualifiers: Vomiting type: unspecified Vomiting Intractability: non-intractable Qualified Code(s): R11.2 - Nausea with vomiting, unspecified Time of Disposition: 21:31 Disposition: Discharge to Home or Self Care Condition: Fair Departure Forms: ED Discharge - Pt. Copy, Patient Portal Self Enrollment Instructions: DI for Gastritis, DI for Gastric Ulcer, DI for Gastrointestinal Bleeding, Nausea and Vomiting, Adult (DC), Anti-Clotting Medicines: Warfarin (Coumadin) Diet: bland diet Referrals: John Paul Scruggs III, MD [Primary Care Provider] - 1-2 Weeks Prescriptions: Dicyclomine HCl [Bentyl] 20 mg PO TID PRN #30 tab PRN Reason: Abdominal Distress Ondansetron Tab [Zofran Tab] 4 mg PO TID PRN #12 tab PRN Reason: Nausea/Vomiting Pantoprazole Sodium [Protonix] 20 mg PO BID #60 tab Home Medications: Ambulatory Orders Terazosin HCl 2 mg PO BEDTIME 06/28/15 Loratadine [Claritin] 1 tablet PO DAILY 04/29/19 Omeprazole 20 mg PO DAILY 04/29/19 Atorvastatin Calcium [Lipitor] 40 mg PO DAILY 07/29/19 Carvedilol 3.125 mg PO DAILY 07/29/19 Dicyclomine HCl [Bentyl] 20 mg PO TID PRN #30 tab 07/29/19 Furosemide 40 mg PO DAILY 07/29/19 Losartan Potassium [Cozaar] 150 mg PO DAILY 07/29/19 Ondansetron Tab [Zofran Tab] 4 mg PO TID PRN #12 tab 07/29/19 Pantoprazole Sodium [Protonix] 20 mg PO BID #60 tab 07/29/19 Warfarin Sodium 4 mg PO BEDTIME 07/29/19 Comments: Hilton Stone DO [facility] #[id number]
[2019-07-29] MEDS ORDERED: OCTREOTIDE ACETATE 500 MCG in SODIUM CHLORIDE 0.9% 100ML 100 ML IVPB SCH (19:00)
[2019-07-29] MEDS ORDERED: SODIUM CHLORIDE 0.9% 100ML 100 ML IVPB ONE (19:02)
[2019-07-29] MEDS ORDERED: OCTREOTIDE ACETATE 100 MCG/ML VIAL ONE (19:03)
--- NOTE | 2019-07-29 21:11 | US ---
EXAM DESCRIPTION: Gall Bladder CLINICAL HISTORY: 74 years Male abdominal pain, hyperbilirubinemia COMPARISON: CT scan of the abdomen and pelvis dated October 18, 2017. TECHNIQUE: Real-time sonography of the right upper abdomen was performed. FINDINGS: No visualization of gallbladder consistent with history of prior cholecystectomy. Common bile duct measured 6 mm. No focal hepatic abnormality. No intrahepatic biliary dilatation. Homogeneous echogenicity involving the hepatic parenchyma. Right kidney is normal in size and echogenicity measuring 11.4 x 7.1 x 7 cm. No hydronephrosis seen. No abnormal fluid collections seen. IMPRESSION: Prior cholecystectomy. No sonographic abnormality noted. Electronically signed by: Sherrill Naranjo MD 07/29/2019 9:09 PM CDT
[2019-07-29 23:28] VITALS: BP 172/110; TEMP 98.8; O2SAT 97
== END 2019-07-29 23:00 | disposition home or self-care (01) ==
LOC: ER 18:24
DX: K92.0 Hematemesis (principal); R10.13 Epigastric pain; E80.6 Other disorders of bilirubin metabolism; I48.91 Unspecified atrial fibrillation; I10 Essential (primary) hypertension; K21.9 Gastro-esophageal reflux disease without esophagitis; Z79.01 Long term (current) use of anticoagulants; Z79.899 Other long term (current) drug therapy; Z90.49 Acquired absence of other specified parts of digestive tract
CPT/HCPCS: 36416; 76705; 80053; 83690; 83735; 85025; 85610; J2354; J2405; J7030; J7050

== ENCOUNTER → 2019-11-12 | Outpatient (CLI) | payer MEDICARE, OTHER | LOC: GMAL 10:52 | PROVIDERS: ATTEND Family Medicine | DX: Z12.5 Encounter for screening for malignant neoplasm of prostate (principal) ==

== ENCOUNTER 2020-04-05 06:02 | Emergency (ER) | payer MEDICARE, OTHER ==
[2020-04-05 06:17] VITALS: TEMP 97.7
--- NOTE | 2020-04-05 06:26 | ED.PDOC ---
History of Present Illness - General Source: patient Exam Limitations: no limitations - History of Present Illness Initial Comments: The patient is a 74-year-old male presented emergency room secondary to shortness of breath that has been present and somewhat progressive over the last week. There has been significant coronavirus infections at his work. He has not been tested previously. He was not hypoxic with EMS. He was however bradycardia and did seem to have some run of some form of an arrhythmia very briefly on the monitors. He does have a history of atrial fibrillation but is currently in sinus bradycardia. He is anticoagulated with Coumadin. He denies sore throat or runny nose. No nausea vomiting or diarrhea. He reports that he has had a mildly productive cough for the last 3 to 4 days. No syncope. No chest pain. Timing/Duration: 1 week, constant, getting worse Severity: mild Improving Factors: nothing Worsening Factors: nothing Associated Symptoms: cough, malaise, shortness of breath <Brandt Gonzalez - Last Filed: 04/05/20 06:24> <Aamir Oliver - Last Filed: 04/05/20 10:20> - General Chief Complaint: Respiratory Problem Stated Complaint: SOB, "sick for 1 week" Time Seen by Provider: 04/05/20 06:08 - History of Present Illness Allergies/Adverse Reactions: Allergies Acetaminophen [From Tylenol] Allergy (Verified 04/05/20 06:11) Codeine Allergy (Verified 04/05/20 06:11) Metoprolol Allergy (Verified 04/05/20 06:29) Morphine Adverse Reaction (Verified 04/05/20 06:29) Home Medications: Ambulatory Orders Terazosin HCl 5 mg PO BEDTIME 06/28/15 Furosemide 40 mg PO DAILY 07/29/19 Losartan Potassium [Cozaar] 100 mg PO DAILY 07/29/19 Warfarin Sodium 5 mg PO BEDTIME 07/29/19 Atorvastatin Calcium [Lipitor] 40 mg PO DAILY 04/05/20 Benzonatate Perles [Tessalon Perles] 100 mg PO TID PRN #20 cap 04/05/20 Carvedilol [Coreg] 3.125 mg PO BID 04/05/20 Review of Systems - Review of Systems Constitutional: States: malaise EENTM: States: no symptoms reported Respiratory: States: cough, short of breath - Primarily with exertion Cardiology: States: no symptoms reported Gastrointestinal/Abdominal: States: no symptoms reported Genitourinary: States: no symptoms reported Musculoskeletal: States: no symptoms reported Skin: States: no symptoms reported Neurological: States: no symptoms reported Endocrine: States: no symptoms reported All other Systems: No Change from Baseline <Ace Gonzalezy Allison - Last Filed: 04/05/20 06:24> Past Medical History (General) - Patient Medical History Hx Seizures: No Hx Stroke: No Hx Asthma: No Hx of COPD: No Hx Cardiac Disorders: Yes - atrial fibriallation Hx Congestive Heart Failure: No Hx Pacemaker: No Hx Hypertension: Yes Hx Diabetes: No Hx Gastroesophageal Reflux: Yes Hx Cancer: No Hx MRSA: No - Vaccination History Hx Influenza Vaccination: Yes Hx Pneumococcal Vaccination: Yes - Social History Hx Tobacco Use: No Hx Alcohol Use: No Hx Substance Use: No Hx Physical Abuse: No Hx Emotional Abuse: No <Ace Gonzalezy Allison Last Filed: 04/05/20 06:24> Family Medical History - Family History Father Living Status: Age at (years of age): 74 Cause of : aneurism Mother Living Status: Cause of : [place] Hx Family Cancer: Yes - lung <Ace Gonzalezy Allison Last Filed: 04/05/20 06:24> Physical Exam - Physical Exam General Appearance: Alert, Anxious, No apparent distress Eye Exam: bilateral normal Ears, Nose, Throat: hearing grossly normal, normal pharynx Neck: full range of motion, supple Respiratory: lungs clear, normal breath sounds, no respiratory distress, no accessory muscle use Cardiovascular/Chest: normal peripheral pulses, no edema, bradycardia Peripheral Pulses: radial,right: 2+, radial,left: 2+ Gastrointestinal/Abdominal: non tender, soft Rectal Exam: deferred Back Exam: no CVA tenderness, no vertebral tenderness Extremity: non-tender, normal inspection, no pedal edema, normal capillary refill 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 The patient has had exposure to coronavirus at work. He is receiving the PCR test here. It will take a couple of hours to return. The patient does have significant sinus bradycardia which may be contributing to his shortness of breath. Laboratory work and x-ray are being sent. He is currently not exhibiting any significant hypoxia. He will be monitored on telemetry monitoring. He will be followed by the oncoming ER physician. brandt [email or web address] [id number] - Results/Orders Results/Orders: EKG shows sinus bradycardia at 49 bpm. Normal axis. Normal R wave progression. Inverted T wave in lead III but otherwise no evidence of T wave or ST segment changes indicative of acute ischemia. Normal QT interval. <Brandt Gonzalez - Last Filed: 04/05/20 06:24> - Progress Progress: 04/05/20 07:51 PATIENT DOES NOT MEED [facility] CRITERIA TO RECEIVE BAMLANIVIMAB, WHICH REQUIRES "AGE OVER 55 AND TWO OF THE FOLLOWING BMI>35, DM, COPD, CRI, OR (CARDIOVASCULAR DZ OR HTN). PATIENT IS OVER 55, BUT ONLY OR CRITERIA MET IS "CARDIOVASCULAR OR HTN" <Aamir Oliver - Last Filed: 04/05/20 10:20> Departure <Brandt Gonzalez - Last Filed: 04/05/20 06:24> - Departure Time of Disposition: 10:18 Activity: increase activity as tolerated <Aamir Oliver - Last Filed: 04/05/20 10:20> - Departure Clinical Impression: Shortness of breath, Sinus bradycardia, COVID-19 Disposition: Discharge to Home or Self Care Condition: Fair Departure Forms: ED Discharge - Pt. Copy, Patient Portal Self Enrollment Instructions: Coronavirus Disease 2019 (COVID-19) Referrals: John Paul Scruggs III, MD [Primary Care Provider] - 1-2 Weeks Prescriptions: Benzonatate Perles [Tessalon Perles] 100 mg PO TID PRN #20 cap PRN Reason: Cough Home Medications: Ambulatory Orders Terazosin HCl 5 mg PO BEDTIME 06/28/15 Furosemide 40 mg PO DAILY 07/29/19 Losartan Potassium [Cozaar] 100 mg PO DAILY 07/29/19 Warfarin Sodium 5 mg PO BEDTIME 07/29/19 Atorvastatin Calcium [Lipitor] 40 mg PO DAILY 04/05/20 Benzonatate Perles [Tessalon Perles] 100 mg PO TID PRN #20 cap 04/05/20 Carvedilol [Coreg] 3.125 mg PO BID 04/05/20 Additional Instructions: RETURN TO ER FOR PULSE OXIMETER LESS THAN 90%
--- NOTE | 2020-04-05 07:10 | RAD ---
EXAM: Chest 1 View HISTORY: sob, covid exposure COMPARISON: Chest 1 View AP 04/29/2019 TECHNIQUE: Chest 1 View AP FINDINGS: Trachea midline. Heart size appears upper limits normal and may be partly due to portable AP technique and decreased inspiration. No significant change in mild hazy stranding bilateral mid/lower lung field opacities. No significant pleural effusion or pneumothorax. No focal consolidation or lung mass. Thoracic spine degenerative disease. Right upper abdominal surgical clips again seen. IMPRESSION: No significant change in mild hazy stranding bilateral mid/lower lung field opacities. This more likely represents scar/fibrosis. Superimposed subsegmental atelectasis or infection cannot be completely excluded. Electronically signed by: Leonidas Iraheta MD 04/05/2020 7:08 AM PRODUCTION ADMINISTRATIVE ASSISTANT
[2020-04-05] MEDS ORDERED: SODIUM CHLORIDE 0.9% 250ML 250 ML ONE ×2 (09:11→09:27)
[2020-04-05 12:04] VITALS: O2SAT 97
[2020-04-05 12:06] VITALS: BP 132/86
== END 2020-04-05 11:30 | disposition home or self-care (01) ==
LOC: ER 06:02
DX: U07.1 COVID-19 (principal); R00.1 Bradycardia, unspecified; I48.91 Unspecified atrial fibrillation; I10 Essential (primary) hypertension; K21.9 Gastro-esophageal reflux disease without esophagitis; Z79.01 Long term (current) use of anticoagulants; Z79.899 Other long term (current) drug therapy; Z88.5 Allergy status to narcotic agent; Z88.8 Allergy status to other drugs, medicaments and biological substances; Z88.6 Allergy status to analgesic agent
CPT/HCPCS: 36415; 71045; 80053; 82550; 82553; 82728; 83615; 83735; 83880; 84443; 84484; 85025; 85379; 85384; 85610; 85730; 86140; 87486; 87581; 87633; 87635; 93005; J7050

== ENCOUNTER → 2020-06-18 | Outpatient (CLI) | payer MEDICARE, OTHER ==
--- NOTE | 2020-06-20 19:02 | US ---
EXAM DESCRIPTION: Testicular: Ultrasound. CLINICAL HISTORY: 75 years Male scrotum (other hydrocele) COMPARISON: None. TECHNIQUE: Transcutaneous scanning ; ybarra-scale and Doppler modes. FINDINGS: Dimensions of the right testicle are 5.6 x 3.8 x 3.5 cm, with normal echogenicity and normal color Doppler flow. Epididymal head measures 10.8 x 5.9 x 8.2 mm, with normal echogenicity and normal color Doppler flow. No scrotal wall thickening. Large Hydrocele. Dimensions of the left testicle are 5.4 x 2.9 x 2.8 cm, with normal echogenicity and normal color Doppler flow. Epididymal head measures 10.0 x 5.9 x 6.5 mm, with normal echogenicity and normal color Doppler flow. No scrotal wall thickening. Small Hydrocele. IMPRESSION: Bilateral hydroceles in the scrotum larger on the right than left. Testicles and epididymides are unremarkable with normal size and vascularity. No mass. Electronically signed by: Rashard Paul MD 06/20/2020 7:00 PM [facility]
== END ==
LOC: US 10:51
PROVIDERS: ATTEND Family Medicine
DX: N43.2 Other hydrocele (principal)